=== PATIENT | male | born 1985 | race Caucasian/White ===

== ENCOUNTER 2020-06-19 12:04 | Emergency (ER) | payer MEDICAID ==
[~2020-06-19] VITALS: Ht 167.6 cm; Wt 81.6 kg
[2020-06-19 12:07] VITALS: BP 149/98
[2020-06-19] MEDS ORDERED: KETOROLAC 30 MG/ML VIAL IM ONE (13:05)
[2020-06-19] MEDS ORDERED: ACET-8386 PO (13:06)
[2020-06-19 13:20] VITALS: BP 149/98
== END 2020-06-19 13:20 | disposition home or self-care (01) ==
LOC: MED 12:04
DX: M54.5 Low back pain (principal); X50.0XXA Overexertion from strenuous movement or load, initial encounter; Y93.89 Activity, other specified; Y92.89 Other specified places as the place of occurrence of the external cause; Y99.8 Other external cause status
CPT/HCPCS: 81002; 96372; 99283; J1885